=== PATIENT | female | born 2000 | race Caucasian/White ===

== ENCOUNTER 2025-06-05 08:22 | Emergency (ER) | payer SELFPAY ==
[~2025-06-05] VITALS: Ht 167.6 cm; Wt 60.0 kg
[2025-06-05 08:30] VITALS: O2SAT 99
[2025-06-05 08:35] VITALS: BP 124/84; PULSE 89; RESP 18; TEMP 37.1; O2SAT 99
[2025-06-05 09:22] LABS: BASOPHILS % 0.4 % (0.0-2.0); EOSINOPHILS % 0.2 % (0.0-5.0); HEMATOCRIT. 40.9 % (36.0-48.0); HEMOGLOBIN. 13.3 g/dL (12.0-16.0); LYMPHOCYTES % 8.0 % (20.0-50.0); MEAN PLATELET VOLUME 8.8 fl (7.4-10.4); MONOCYTES % 3.9 % (2.0-8.0); NEUTROPHILS % 87.5 % (40.0-76.0); PLATELET 377 x1000/uL (130-400); RED BLOOD CELL COUNT 4.93 mill/uL (4.2-5.4); RED CELL DISTRIBUTION WIDTH 13.8 % (11.6-14.6)
[2025-06-05] MEDS: MAGNESIUM/ALUMINUM HYDROXIDE/SIMETHICONE 30ML UDC PO ONE (09:22)
[2025-06-05] MEDS: DICYCLOMINE HCL 10MG CAPSULE PO ONE (09:22)
[2025-06-05] MEDS: ONDANSETRON 4MG ODT PO ONE (09:22)
[2025-06-05 09:48] LABS: CREATININE 0.8 mg/dL (0.6-1.0); UREA NITROGEN BLOOD 6 mg/dL (9-23)
[2025-06-05 10:21] LABS: HCG SCREEN NEGATIVE
[2025-06-05] MEDS ORDERED: MAG355OR21 MT (11:20)
[2025-06-05] MEDS ORDERED: DICY-18 MT (11:20)
[2025-06-05] MEDS ORDERED: ONDA4TAB50 MT (11:20)
== END 2025-06-05 11:31 | disposition home or self-care (01) ==
LOC: ER 08:22
DX: R10.11 Right upper quadrant pain (principal); K52.9 Noninfective gastroenteritis and colitis, unspecified; R20.0 Anesthesia of skin; R20.2 Paresthesia of skin; Z88.6 Allergy status to analgesic agent; Z79.899 Other long term (current) drug therapy
CPT/HCPCS: 99284; 76705; 80048; 84703; 85025; 36415; Q0162